=== PATIENT | female | born 1980 | race Caucasian/White ===

== ENCOUNTER → 2019-11-07 | Outpatient (CLI) | payer OTHER ==
--- NOTE | 2019-11-08 09:35 | US ---
Thyroid Biopsy, Image-Guided: Biopsy of Thyroid: Ultrasound CLINICAL INFORMATION: 39 years Female. Thyroid nodule versus mass right lobe. COMPARISON: CT scan of the neck soft tissues July 18. Ultrasound thyroid August 07.. TECHNIQUE: Procedure was performed by Dr. Acosta. Timeout was performed to identify the patient, the procedure, and the body part involved. The procedure was Explained to the patient, with risks and benefits. The patient gave verbal and written consent. Sterile preparation draping. 1% xylocaine dermal anesthetic 9-1 mixture with sodium bicarbonate. Sterile ultrasound guidance. A total of 6 passes with the needle into the right thyroid nodule; 4 needle samplings with a separate 1.5 inch, 25-gauge needle per sample, and 2 aspirations, with a separate 1.5 inch, 25-gauge needle/10-cc syringe set, per aspiration. Each sample was placed on a separate slide and fixed in 95% alcohol container. Saccomanno fluid drawn into aspirate needle and rinse injected into Saccomanno container. Specimens to be sent for pathologic examination at remote facility. . Patient tolerated procedure well. Biopsy #:1 Nodule reference number based on prior diagnostic ultrasound:1 Maximum size: 1.1 cm. Measures 1.7 cm on previous ultrasound and prior CT scan. Location: right; mid ACR TI-RADS risk category: TR4 (4-6 points) Reason for biopsy: meets ACR TI-RADS criteria Complications: Minimal bleeding at skin puncture site . Bleeding stopped with minimal pressure with dressing. FINDINGS: Multiple images demonstrate the echogenic needle within the nodule/mass during sampling and aspirations. IMPRESSION: Successful ultrasound guided fine needle aspiration of right thyroid nodule, performed by Dr. Acosta. ACR TI-RADS Risk Category TR 4. Patient given instructions for home care. Discharged in good condition with transportation by another [facility] a driver. Electronically signed by: Tavon Acosta MD 11/08/2019 9:33 AM CDT
== END ==
LOC: US 09:17
PROVIDERS: ATTEND Nurse Practitioner Family
DX: E04.1 Nontoxic single thyroid nodule (principal)